=== PATIENT | male | born 1995 | race Caucasian/White ===

== ENCOUNTER 2017-02-02 21:25 | Emergency (ER) | payer OTHER ==
[2017-02-02] MEDS ORDERED: Bacitracin Zinc 1 Packet ONE (21:56)
[2017-02-02] MEDS ORDERED: Adacel (T-DAP) 0.5 ML VIAL ONE (22:14)
== END 2017-02-02 22:36 | disposition home or self-care (01) ==
LOC: ERS 21:25
DX: S01.81XA Laceration without foreign body of other part of head, initial encounter (principal); W51.XXXA Accidental striking against or bumped into by another person, initial encounter; Y93.61 Activity, american tackle football
CPT/HCPCS: 12011; 90471; 90715